=== PATIENT | male | born 1980 | race Caucasian/White ===

== ENCOUNTER → 2020-06-21 07:09 | Outpatient (CLI) | payer OTHER, SELFPAY ==
--- NOTE | ~2020-06-21 | MR_ITS ---
EXAMINATION: MR knee RT wo con DATE: 06/21/2020 07:49 INDICATION: Medial right knee pain TECHNIQUE: Magnetic resonance imaging (MRI) of the right knee was performed without intravenous contr ast. Sequences included coronal PD-weighted FSE, coronal PD-weighted FS FSE, sagittal T2-weighted FS E, sagittal PD-weighted FS FSE and axial PD weighted fat saturated FSE. COMPARISON: None. FINDINGS: Medial compartment: Complex tear of the body and posterior horn of the medial meniscus with a longitudinal horizontal tea r plane extending to the inferior articular surface and secondary radial tear plane involving the pos terior horn cephalad to the horizontal tear plane. There 3 per meniscal cysts along the periphery of the medial meniscus. This includes a 1.9 x 1.2 x 0.4 cm paravertebral cyst along the posterior horn o f the medial meniscus, a 7 x 8 x 1.5 mm paralabral cyst at the periphery of the medial meniscal body and finally a 2.2 x 0.8 x 0.3 cm meniscal cyst arising at the junction of the body and posterior horn and extends anterosuperiorly along the superficial margin of the medial collateral ligament. Articul ar cartilage is normal. Lateral compartment: Lateral meniscus is normal. Articular cartilage is normal. Patellofemoral compartment: Patellar cartilage is normal. There is deep chondral fissuring with underlying cortical irregularity and minimal subarticular edema at the central aspect of the medial trochlea. Ligaments and tendons: Anterior and posterior cruciate ligaments are normal. The medial collateral ligament and fibular ian ateral ligament complex are normal. The extensor mechanism is normal. The visualized medial and later al hamstring tendons as well as the iliotibial band are normal. Fluid: Physiologic amount of fluid in the joint space. No loose osteochondral bodies identified. Osseous/other: No fracture or pathologic marrow replacing process. IMPRESSION: 1. Complex medial meniscal tear with a few associated para meniscal cysts. 2. 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 Reviewed, dictated and finalized at location A.
== END ==
PROVIDERS: Visit Provider Internal Medicine
DX: M25.561 Pain in right knee (principal); S83.231A Complex tear of medial meniscus, current injury, right knee, initial encounter; M94.261 Chondromalacia, right knee
CPT/HCPCS: 73721

== ENCOUNTER 2023-12-30 19:04 | Emergency (ER) | payer OTHER, SELFPAY ==
--- NOTE | ~2023-12-30 | XR_ITS ---
EXAMINATION: XR abdomen/kub 1V DATE: 12/30/2023 19:32 INDICATION: Left flank pain. TECHNIQUE: A supine view of the abdomen was obtained. COMPARISON: None. FINDINGS: There are no dilated loops of bowel. There is a small volume of stool in the colon. There i s no visible urolithiasis. IMPRESSION: 1. No visible urolithiasis. Reviewed, dictated and finalized at location E. IMPRESSION: 1. No visible urolithiasis.
[2023-12-30 19:12] VITALS: BP 150/76; PULSE 69; RESP 16; TEMP 36.9; O2SAT 98
--- NOTE | 2023-12-30 19:12 | ED.BACK ---
HPI - Back Pain/Injury General Chief Complaint: Back Pain/Injury Stated Complaint: FLANK PAIN Time Seen by Provider: 12/30/23 19:36 Source: patient and RN notes reviewed Mode of arrival: ambulatory Limitations: no limitations History of Present Illness HPI Narrative: 43-year-old male presents concern for left flank pain that started on Friday. Reports it is a intermittent sharp stabbing pain that is 8/10 when it comes. He denies any injury or trauma. Reports it does not feel like his typical lower back pain. He denies bowel or bladder function problems, numbness in his perianal area, weakness in any extremity. Denies rash, bruising. MD elicited complaint: other (Flank pain) Related Data Allergies Allergy/AdvReac Type Severity Reaction Status Date / Time No Known Allergies Allergy Unverified 12/30/23 19:07 Review of Systems Review of Systems: CONSTITUTIONAL: Denies malaise, chills, sweats, or fever. CARDIOVASCULAR: Denies chest pain, palpitations, or edema. RESPIRATORY: Denies cough or dyspnea. GASTROINTESTINAL: Denies abdominal pain, nausea, vomiting, diarrhea, loss of bowel function GENITOURINARY: Denies dysuria, hematuria, frequency, loss of bladder function. SKIN: Denies rash or itching. MUSCULOSKELETAL: Report left flank pain NEUROLOGIC: Denies numbness, weakness, or headache. All systems reviewed & are unremarkable except as noted in HPI and below PMFSH Social History Social History (Updated 03/27/23 @ 09:10 by Zulema Bocanegra MA) Smoking status: Never smoker Alcohol intake: current Substance use: never Lack of Transportation: No Lack of Food: Never True Current Housing: I Have Housing Concerned About Future Housing: No Difficulty Paying Gas/Electric Bills: No Difficulty Paying for Meds: No Currently Unemployed: No Education: Bachelor's Degree Difficulty w/ Childcare or Family Care: No Gender identity (if verbalized by the patient): Male Comments At time of signature, agree with nursing past medical, surgical, social and family history. There is no relevant family history pertinent to the presenting complaint Exam Narrative: GENERAL: Well-appearing, well-nourished, and in no acute distress. HEAD: Normocephalic, atraumatic. EYES: PERRLA and EOMI. NECK: Supple. No lymphadenopathy. CHEST: Clear to auscultation. No respiratory distress. HEART: Regular rate and rhythm. Distal pulses palpable and equal, cap refill <3 seconds ABDOMEN:No CVA tenderness MUSCULOSKELETAL: Grossly Normal range of motion and strength in all extremities. Normal sensation in dermatomal distributions with sensitivity to light touch and pain. No midline back tenderness to palpation. No paraspinal tenderness. Transfers from sitting to standing. SKIN: Warm, dry, no rash. No ecchymosis, erythema, open wounds to back. NEURO: No focal deficits. Alert and oriented x3. Normal gait. PSYCH: Normal mood and affect Course Course Emergency Course: Patient is aware of diagnosis, understands and agrees to treatment plan. Anticipatory guidance given. Patient agrees to follow-up as directed and is aware of reasons to seek care at the emergency department. Portions of this record may have been created with voice recognition software Level of Care: Express Care Visit Vital Signs Vital signs: Reviewed. MDM - Back Pain/Injury MDM Narrative Medical decision making narrative: No risk factors or findings concerning for epidural abscess, diskitis, vertebral osteomyelitis, cord compression, cauda equina, vertebral fracture or bone malignancy, AAA, or pyelonephritis. Patient instructed to consider further imaging and workup through their primary care physician as an outpatient if symptoms persist. Critical Care Time Critical Care Time Critical Care Time: No Discharge Plan Discharge Clinical Impression: Flank pain Patient Disposition: Home, Self-Care Condition: Stable Instructions: How to Strain
== END 2023-12-30 19:46 | disposition home or self-care (01) ==
PROVIDERS: Emergency Provider Nurse Practitioner; PCP Family Medicine
DX: R10.9 Unspecified abdominal pain (principal)
CPT/HCPCS: 74018; 81003; 99213; G0463

== ENCOUNTER 2025-02-15 01:27 | Day surgery (SDC) | payer OTHER, SELFPAY ==
[2025-02-08 16:07] VITALS: BMI 33.8
--- OUTSIDE RECORDS SUMMARY | 2025-02-15 01:42 | XMS_ITS | Clinical Summary ---
Author Organization [facility] Address [address] [place] [address] Care Team Providers Care Claim Attorney Name Role Phone Linwood Hare MD Primary Care Provider [phone] Ray Rehman Unavailable [phone] Allergies No known active allergies Medications cholecalciferol (VITAMIN D-3) 2000 unit capsule Take 1 capsule (2,000 Units total) by mouth daily 30 capsule 07/10/2020 Active Active Problems Problem Noted Date Diagnosed Date Complex tear of medial menis cus of right knee as current injury 06/30/2020 Surgical History Surgery Date Site/Laterality Comments CLOSED REDUCTION ELBOW DISLOCATION Social History Tobacco Use Types Packs/Day Years Used Date Smoking Tobacco: Never Smokeless Tobacco: Never Alcohol Use Standard Drinks/Week Comments Yes 4 (1 standard drink = 0.6 oz pur e alcohol) Sex and Gender Information Value Date Recorded Sex Assigned at Not on file Legal 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 RESIDENTIAL CAREGIVER Gender Identity Not on file Sexual Orientation Not on file Occupation Industry Job Start Date Job End Date banker Not on file Not on file Not on file Obstetrics History Last Filed Vital Signs Vital Sign Reading Time Taken Comments Blood Pressure 135/84 08/02/2020 10:13 AM RESIDENTIAL CAREGIVER Pulse 58 08/02/2020 10:13 AM RESIDENTIAL CAREGIVER Temperature 37 C (98.6 F) 08/02/2020 10:13 AM RESIDENTIAL CAREGIVER Respiratory Rate 18 07/20/2020 10:18 AM RESIDENTIAL CAREGIVER Oxygen Saturation 98% 07/20/2020 10:18 AM RESIDENTIAL CAREGIVER Inhaled Oxygen Concentration - - Weight 114.8 kg (253 lb) 08/02/2020 10:13 AM RESIDENTIAL CAREGIVER Height 182.9 cm (6') 08/02/2020 10:13 AM RESIDENTIAL CAREGIVER Body Mass Index 34.31 08/02/2020 10:13 AM RESIDENTIAL CAREGIVER Plan of Treatment Not on file Insurance [facility] CHOICE PLUS [facility] H[facility]/PPO Address: [facility] [id number] [place] [address] Care Teams Claim Attorney Relationship Specialty Start Date End Date Linwood Hare MD PCP - General Family Medicine 06/05/20 Ray Rehman PA [address] [place] [address] [place] [id number] Physician Robot Programmer Orthopedic Surgery 07/20/20
--- OUTSIDE RECORDS SUMMARY | 2025-02-15 01:42 | XMS_ITS | Clinical Summary ---
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 Gender Identity Not on file Sexual Orientation Not on file Plan of Treatment Health Maintenance Due Date Last Done Comments Hepatitis C Virus (HCV) Screening 1979 TdaP Immunization 1979 Hepatitis B Immunization (1 of 3 - 19+ 3-dose series) 1998 Influenza Immunization (#1) 2024 08/29/2020 SARS-COV-2 Immunization (2023- season) 2024 Colonoscopy 2024 Colorectal Cancer Screening 2024 Respiratory Syncytial Virus (RSV) Immunization (Adult) (1 - 1-dose 75+ series) 2054 Meningococcal Immunization (ACWY) Aged Out No longer eligible based on patient's age to complete this topic Pneumococcal Immunization Combined Aged Out No longer eligible based on patient's age to complete this topic Rotavirus Immunization Aged Out No lo nger eligible based on patient's age to complete this topic
--- OUTSIDE RECORDS SUMMARY | 2025-02-15 01:42 | XMS_ITS | Referral Summary ---
Author Organization [facility] Address [address] [place] [address] Care Team Providers Care Dye Boarding Machine Operator Name Role Phone Linwood Hare MD Primary Care Provider [phone] Ray Rehman Unavailable [phone] Allergies No known active allergies Medications cholecalciferol (VITAMIN D-3) 2000 unit capsule Take 1 capsule (2,000 Units total) by mouth daily 30 capsule 07/10/2020 Active Active Problems Problem Noted Date Diagnosed Date Complex tear of medial menis cus of right knee as current injury 06/30/2020 Social History Tobacco Use Types Packs/Day Years Used Date Smoking Tobacco: Never Smokeless Tobacco: Never Alcohol Use Standard Drinks/Week Comments Yes 4 (1 standard drink = 0.6 oz pur e alcohol) Sex and Gender Information Value Date Recorded Sex Assigned at Not on file Legal 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 BALL MAKER Gender Identity Not on file Sexual Orientation Not on file Occupation Industry Job Start Date Job End Date banker Not on file Not on file Not on file Last Filed Vital Signs Vital Sign Reading Time Taken Comments Blood Pressure 135/84 08/02/2020 10:13 AM BALL MAKER Pulse 58 08/02/2020 10:13 AM BALL MAKER Temperature 37 C (98.6 F) 08/02/2020 10:13 AM BALL MAKER Respiratory Rate 18 07/20/2020 10:18 AM BALL MAKER Oxygen Saturation 98% 07/20/2020 10:18 AM BALL MAKER Inhaled Oxygen Concentration - - Weight 114.8 kg (253 lb) 08/02/2020 10:13 AM BALL MAKER Height 182.9 cm (6') 08/02/2020 10:13 AM BALL MAKER Body Mass Index 34.31 08/02/2020 10:13 AM BALL MAKER Plan of Treatment Not on file Insurance [facility] Address: [facility] [id number] [place], [place] [id number] Care Teams Dye Boarding Machine Operator Relationship Specialty Start Date End Date Linwood Hare MD PCP - General Family Medicine 06/05/20 Ray Rehman PA [address] [place] [address] [place] [address] Physician Pain Medicine Physician Orthopedic Surgery 07/20/20
[2025-02-15 09:43] VITALS: BP 133/84; PULSE 71; RESP 17; TEMP 36.7; O2SAT 97; BMI 32.7
[2025-02-15] MEDS: LACTATED RINGERS 1,000 ML 150 ML IV CONT (09:52)
--- NOTE | 2025-02-15 10:09 | P.PNAN_ITS ---
Anes - Initial Pre Proc Eval Procedure: Operation Date: 02/15/25 11:00 Proposed Procedures p Screening Colonoscopy - Solis Strong MD Date/Time: 02/15/25 10:09 Surgeon: Solis Strong MD Pre Op Diagnosis: screening colon Patient Data Age: 44 Gender: M Height: 1.8 m Weight: 106.5 kg Last Vital Signs Temp 36.7 C 02/15/25 09:43 Pulse 71 02/15/25 09:43 Resp 17 02/15/25 09:43 BP 133/84 02/15/25 09:43 Pulse Ox 97 02/15/25 09:43 O2 Del Method Room Air 02/15/25 09:43 Allergies Allergy/AdvReac Type Severity Reaction Status Date / Time No Known Allergies Allergy Verified 02/15/25 09:42 Home Medications ?Medication ?Instructions ?Recorded ?Confirmed ?Type testosterone cypionate 100 mg/mL 100 mg subcut ONCE 01/02/24 02/08/25 History intramuscular oil sildenafil 100 mg tablet (Viagra) 100 mg PO DAILY PRN sexual 09/22/24 02/08/25 Rx activity #30 tabs Patient hx anesthesia problems: none Family hx anesthesia problems: none Results Review: All pre-operative results and documents have been reviewed as part of the pre- operative evaluation. [facility] Social History Social History (Updated 02/15/25 @ 10:21 by Ced Hill DO) Smoking status: Never smoker Alcohol intake: current Drinks per week: 30 Substance use: never Substance use type: does not use Lack of Transportation: No Lack of Food: Never True Current Housing: I Have Housing Concerned About Future Housing: No Difficulty Paying Gas/Electric Bills: No Difficulty Paying for Meds: No Currently Unemployed: No Education: Bachelor's Degree Difficulty w/ Childcare or Family Care: No Living arrangements: with family Additional living arrangements comments: with sp Gender identity (if verbalized by the patient): Male Anes - Eval Final PreProcedure Day of Procedure 02/15/25 10:09 Patient weight: obese Heart: regular rate and rhythm Lungs: clear to auscultation Airway: Mallampati scale class II Neurological: alert and oriented Last oral intake: >/= 8 hours ASA classification: III Emergent: no Anesthetic plan: proceed Anesthesia type and monitoring: general GIVS and standard monitoring Results Review: All pre-operative results and documents have been reviewed as part of the pre- operative evaluation. Informed Consent: The patient's anesthetic plan and its attendant risks and benefits were discussed with the patient/family/POA. Questions were solicited and answers provided to the satisfaction of the patient/family/POA.
--- NOTE | 2025-02-15 10:20 | P.HP_ITS ---
History of Present Illness History of Present Illness Consent: Risks, benefits, and alternatives have been discussed and questions answered. Patient agrees to proceed with procedure. Chief complaint: screening colon Narrative: Jan Connolly is a 44 year old male here for first screening colonoscopy Review of Systems Review of Systems: All systems reviewed & are unremarkable except as noted in HPI and below PENDING SALE TO [facility] Social History Social History Smoking status: Never smoker Alcohol intake: current Drinks per week: 15 Substance use: never Substance use type: does not use Lack of Transportation: No Lack of Food: Never True Current Housing: I Have Housing Concerned About Future Housing: No Difficulty Paying Gas/Electric Bills: No Difficulty Paying for Meds: No Currently Unemployed: No Education: Bachelor's Degree Difficulty w/ Childcare or Family Care: No Living arrangements: with family Additional living arrangements comments: with sp Gender identity (if verbalized by the patient): Male Meds Home Medications and Allergies Home Medications ?Medication ?Instructions ?Recorded ?Confirmed ?Type testosterone cypionate 100 mg/mL 100 mg subcut ONCE 01/02/24 02/08/25 History intramuscular oil sildenafil 100 mg tablet (Viagra) 100 mg PO DAILY PRN sexual 09/22/24 02/08/25 Rx activity #30 tabs Allergies Allergy/AdvReac Type Severity Reaction Status Date / Time No Known Allergies Allergy Verified 02/15/25 09:42 Vital Signs Vital Signs - 24 hr 02/15/25 09:43 Temperature 98.0 F Pulse Rate 71 Respiratory Rate 17 Blood Pressure 133/84 Pulse Oximetry 97 Oxygen Delivery Room Air Exam Const: General: comfortable and no acute distress HENMT: Face/Nose/Sinus: Normal nares present Eyes: General: appearance normal, both eyes and all related structures Neck: Neck: no JVD Resp: Auscultation: clear to auscultation bilaterally Cardio: Rate: regular rate Rhythm: regular rhythm GI: Inspection: non-distended GI Palp: Yes Soft to palpation Skin: General skin exam: normal color Neuro: General: gait normal Speech: normal speech Extrem: General: normal to inspection Psych: Mental Status: mental status grossly normal Assessment and Plan Assessment and plan (1) Colon cancer screening: Code(s): Z12.11 - Encounter for screening for malignant neoplasm of colon Status: Acute Assessment and Plan: colonoscopy
[2025-02-15 10:34] VITALS: BP 114/73; PULSE 78; RESP 17; O2SAT 95
[2025-02-15 10:44] VITALS: BP 135/88; PULSE 78; RESP 17; O2SAT 95
[2025-02-15 10:54] VITALS: BP 132/84; PULSE 64; RESP 25; O2SAT 97
== END 2025-02-15 10:57 | disposition home or self-care (01) ==
PROVIDERS: PCP Family Medicine; Referring Provider Family Medicine; Visit Provider Internal Medicine Gastroenterology
PROC: 0DJD8ZZ Inspection of Lower Intestinal Tract, Via Natural or Artificial Opening Endoscopic (ICD-10-PCS; CPT 45378; principal; 2025-02-15 11:00)
DX: Z12.11 Encounter for screening for malignant neoplasm of colon (principal); K64.8 Other hemorrhoids; E66.9 Obesity, unspecified; Z68.32 Body mass index [BMI] 32.0-32.9, adult
CPT/HCPCS: 45378; J2704; J7120